=== PATIENT | male | born 1965 | race Asian ===

== ENCOUNTER 2019-04-10 15:12 | Outpatient (REF) | payer SELFPAY ==
[2019-04-10 18:42] LABS: Abs Immature Grans 0.01 k/cumm (0.0-0.09); Absolute Basophil Count 0.04 k/cumm (0.0-0.2); Absolute Eosinophil Count 0.04 k/cumm (0.0-0.7); Absolute Lymphocyte Count 1.56 k/cumm (1.2-3.4); Absolute Monocyte Count 0.92 k/cumm (0.11-0.7); Basophils % 0.4; Eosinophils % 0.4; HCT 44.4 % (40.0-50.0); HGB 15.7 g/dL (13.5-17.5); Immature Grans % 0.1; Lymphocytes % 14.3; Mean Corp. HGB Concentration 35.4 g/dL (32.0-36.0); Mean Corpuscular Hemoglobin 33.6 pg (27.0-33.0); Mean Corpuscular Volume 95.1 fL (80-95); Mean Platelet Volume 9.9 fL (8.0-11.0); Monocytes % 8.5; Neutrophils % 76.3; Platelet Count 324 x1000/uL (130-400); RBC 4.67 m/cumm (4.50-6.00); RBC Distribution Width 13.6 % (11.8-14.1); White Blood Cell Count 10.88 k/cumm (4.4-10.8)
[2019-04-10 18:54] LABS: ALT 49 U/L (12-78); AST 46 U/L (15-37); Albumin 4.1 g/dL (3.4-5.0); Alkaline Phosphatase 60 U/L (46-116); Anion Gap 11.8 mmol/L (3-11); BUN 7 mg/dL (7-18); Bilirubin, Total 0.7 mg/dL (0.2-1.0); CO2 26.2 mmol/L (21.0-32.0); CREATININE 0.71 mg/dL (0.70-1.30); Calcium 9.6 mg/dL (8.5-10.1); Calculated LDL 157 mg/dL; Chloride 103 mmol/L (98-107); Cholesterol 238 mg/dL (50-200); Glucose 111 mg/dL (70-100); HDL Cholesterol 63 mg/dL (40-60); Lipase 175 U/L (73-393); Potassium 4.8 mmol/L (3.5-5.1); Sodium 141 mmol/L (136-145); Total Protein 7.9 g/dL (6.4-8.2); Triglyceride 90 mg/dL (30-150)
[2019-04-10 19:05] LABS: Amylase 53 U/L (25-115)
[2019-04-10 19:52] LABS: Hemoglobin A1C 6.5 % (4.5-6.2)
== END 2019-04-10 15:32 ==
LOC: NCHCN 15:12
PROVIDERS: PCP Nurse Practitioner; Visit Provider Nurse Practitioner
DX: I10 Essential (primary) hypertension (principal); E11.9 Type 2 diabetes mellitus without complications; F10.11 Alcohol abuse, in remission
CPT/HCPCS: 80053; 80061; 83690; 83721; 82150; 83036; 85025

== ENCOUNTER 2019-04-10 15:29 | Outpatient (CLI) | payer SELFPAY ==
--- NOTE | 2019-04-10 15:54 | DI.RAD_ITS ---
SYMPTOM/DIAGNOSIS: ACUTE BACK PAIN WITH SCIATICA, M54.40 LUMBAR SPINE: AP, lateral and bilateral oblique views. No priors. There is normal alignment of the lumbar spine. No spondylolysis or spondylolisthesis is seen. No acute fractures or subluxations are present. The disc heights are well maintained. There are endplate osteophytes throughout the lumbar spine, particularly at L 2- 3 and L 3-4. Degenerative changes of the facets are seen at L 4-5 and L 5-S 1. The bones appear normally mineralized. IMPRESSION: Moderate degenerative changes in the lumbar spine. No acute fracture or subluxation.
== END 2019-04-10 15:49 ==
PROVIDERS: PCP Nurse Practitioner; Visit Provider Nurse Practitioner
DX: M54.40 Lumbago with sciatica, unspecified side (principal); M47.27 Other spondylosis with radiculopathy, lumbosacral region
CPT/HCPCS: 72110

== ENCOUNTER 2019-06-06 00:24 | Outpatient (CLI) | payer BC, SELFPAY ==
--- NOTE | 2019-06-06 08:42 | DI.MRI_ITS ---
SYMPTOM/DIAGNOSIS: ACUTE BACK PAIN W/SCIATICA M54.40 LUMBOSACRAL SPINE MRI: 06/06 MRI examination of the lumbosacral spine was performed according to the usual protocol. No significant bony signal abnormality seen. There are moderate hypertrophic degenerative changes seen involving the facet joints at Ll4-5 and mild hypertrophic degenerative changes of the facet joints are noted at L3-4 and L5-S1. The conus medullaris appears intact. No significant findings at L1-2 or L2-3. At L3-4 there is a disc bulge with resulting borderline central canal spinal stenosis. No neural foraminal narrowing. No additional findings. At L4-5 there is a large disc herniation which is broad based and has components to the right and left of midline with a probable extruded disc fragment inferior to the disc level, right paracentral. There is significant narrowing of the available spinal canal at the L4-5 level particularly to the left of midline and there is presumed narrow impingement on multiple nerve roots at this level. Neural foramina appear fairly well maintained. At L5-S1, there is a moderate sized central and left lateral disc herniation. Left S1 nerve root is displaced posteriorly and compressed. Neural foramina appear fairly well maintained at L5-S1 as well. CONCLUSION: 1. Mild/borderline central canal spinal stenosis at L3-4 2. Large multi component disc herniation including inferiorly projected right sided extruded disc fragment at L4-5 3. Moderate sized central and left lateral disc herniation at L5-S1 with impingement on at least left S-1 nerve root at this level as well.
== END 2019-06-06 00:44 ==
PROVIDERS: PCP Nurse Practitioner; Visit Provider Nurse Practitioner
DX: M54.40 Lumbago with sciatica, unspecified side (principal); M48.061 Spinal stenosis, lumbar region without neurogenic claudication; M51.17 Intervertebral disc disorders with radiculopathy, lumbosacral region; M51.16 Intervertebral disc disorders with radiculopathy, lumbar region
CPT/HCPCS: 72148

== ENCOUNTER 2020-06-07 13:40 | Outpatient (REF) | payer BC, SELFPAY ==
[2020-06-07 14:25] LABS: Bilirubin Negative (Negative); Blood Negative (Negative); Clarity Clear (Clear); Glucose Negative (Negative); Ketones Trace mg/dL (Negative); Leukocyte Esterase Negative (Negative); Nitrite Negative (Negative); Specific Gravity 1.015 (1.005-1.025); Urobilinogen 0.2 EU/dL (Up TO 0.2)
[2020-06-07 15:02] LABS: COMMENT (LAB VIEW ONLY) 77.95 mg/dL; Microalb ug/mg Crea 16.2 ug/mg Cr
== END 2020-06-07 14:00 ==
LOC: LBN 13:40
PROVIDERS: PCP Nurse Practitioner Family; Visit Provider Nurse Practitioner Family
DX: E11.9 Type 2 diabetes mellitus without complications (principal)
CPT/HCPCS: 81003; 82043; 82570

== ENCOUNTER 2020-06-13 04:15 | Outpatient (CLI) | payer BC, SELFPAY ==
[2020-06-13 13:32] LABS: Abs Immature Grans 0.01 10^3/uL (0.0-0.06); Absolute Basophil Count 0.07 10^3/uL (0.0-0.2); Absolute Eosinophil Count 0.04 10^3/uL (0.0-0.7); Absolute Lymphocyte Count 1.79 10^3/uL (1.2-3.4); Absolute Monocyte Count 0.61 10^3/uL (0.1-0.8); Absolute Neutrophil Count 3.36 10^3/uL (1.2-6.7); Basophils % 1.2; Eosinophils % 0.7; HCT 41.1 % (40.0-50.0); HGB 14.5 g/dL (13.5-17.5); Immature Grans % 0.2; Lymphocytes % 30.4; MCH 32.3 pg (27.0-33.0); MCHC 35.3 % (32.0-36.0); MCV 91.5 fL (80-95); MPV 8.8 fL (8.0-11.0); Monocytes % 10.4; Neutrophils % 57.1; Nucleated RBC 0 %; Platelet Count 319 10^3/uL (130-400); RBC 4.49 10^6/uL (4.36-5.78); RDW 14.5 % (11.8-14.1); WBC 5.88 10^3/uL (4.4-10.8)
[2020-06-13 13:54] LABS: Hemoglobin A1C 6.2 % (<5.7)
[2020-06-13 14:27] LABS: Calculated LDL 134 mg/dL (<100); Cholesterol 236 mg/dL (<200); HDL Cholesterol 85 mg/dL (40-60); TSH 0.42 uIU/mL (0.36-3.74); Triglyceride 87 mg/dL (<150)
[2020-06-13 14:54] LABS: FREE T4 0.94 ng/dL (0.76-1.46)
[2020-06-14 10:13] LABS: Lyme Ab w Rflx to Lyme Confirm Negative (Negative)
[2020-06-15 19:44] LABS: Anaplasma phagocytophilum Negative (Negative); B. miyamotoi PCR Negative (Negative); Babesia divergens/MO-1 Negative (Negative); Babesia duncani Negative (Negative); Babesia microti Negative (Negative); Ehrlichia chaffeensis Negative (Negative); Ehrlichia ewingii/canis Negative (Negative); Ehrlichia muris eauclairensis Negative (Negative)
[2020-06-17 12:39] LABS: Testosterone, Total 529 ng/dL (240-950)
== END 2020-06-13 04:35 ==
PROVIDERS: PCP Nurse Practitioner Family; Visit Provider Nurse Practitioner Family
DX: E11.9 Type 2 diabetes mellitus without complications (principal); G51.0 Bell's palsy; N52.9 Male erectile dysfunction, unspecified
CPT/HCPCS: 36415; 80061; 84403; 87798; 83036; 84439; 84443; 85025; 86618

== ENCOUNTER 2020-07-10 08:51 | Outpatient (CLI) | payer BC, SELFPAY ==
--- NOTE | 2020-07-10 | DI.MRI_ITS ---
EXAM: MR BRAIN WO/W CLINICAL HISTORY: PROGRESSIVE CN VII PALSY,FACIAL NERVE PALSY,G51.0 TECHNIQUE: Multiplanar multisequence MRI of the brain was performed. CONTRAST MATERIAL: IV Contrast: 17 ML of Dotarem contrast administered. COMPARISON: No exams were available for comparison FINDINGS: VENTRICLES AND EXTRA AXIAL SPACES: Normal in size and morphology for the patient's age. HEMORRHAGE: None. CEREBRAL PARENCHYMA: No focus of restricted diffusion to suggest acute infarct. No space-occupying le armani identified. MIDLINE SHIFT: None. BRAINSTEM/CEREBELLUM: Normal. CALVARIUM: Normal. ENHANCEMENT: No suspicious enhancement identified. VISUALIZED PARANASAL SINUSES/MASTOIDS: Mucous retention cysts or polyps are seen in the maxillary sin uses. Remaining visualized paranasal sinuses and mastoids are clear. [place]: Normal flow void. PITUITARY GLAND: Unremarkable. OTHER FINDINGS: No masses or enhancing lesions are seen in the internal auditory canals or cerebellop ontine angles. IMPRESSION: No intracranial mass or enhancing lesion. No evidence of an acute infarct or intracranial hemorrhage . DATA REPOSITORY:
[2020-07-10 15:42] LABS: ALT 69 U/L (16-63); AST 51 U/L (15-37); Alkaline Phosphatase 51 U/L (46-116); Anion Gap 9.3 mmol/L (3-11); BUN 7 mg/dL (7-18); Bilirubin, Total 0.5 mg/dL (0.2-1.0); CO2 29.7 mmol/L (21.0-32.0); CREATININE 0.86 mg/dL (0.70-1.30); Calcium 9.4 mg/dL (8.5-10.1); Chloride 102 mmol/L (98-107); Glucose 127 mg/dL (74-106); Potassium 3.5 mmol/L (3.5-5.1); Sodium 141 mmol/L (136-145); Total Protein 7.7 g/dL (6.4-8.2); Vitamin B12 331 pg/mL (193-986)
[2020-07-10] MEDS: Gadoterate meglumine 20 ML VIAL 17 ML IVP (15:59)
[2020-07-10] MEDS: Normal Saline Flush 10 ML SYR IVP (16:00)
[2020-07-10 21:12] LABS: PSA, Screening 0.5 ng/mL (0.0-3.5)
== END 2020-07-10 09:11 ==
PROVIDERS: PCP Nurse Practitioner Family; Visit Provider Nurse Practitioner Family
DX: G51.0 Bell's palsy (principal)
CPT/HCPCS: 70553; 80053; 84153; 82607

== ENCOUNTER 2022-03-11 12:52 | Outpatient (CLI) | payer BC, SELFPAY ==
[2022-03-11 11:59] LABS: Hemoglobin A1C 6.3 % (<5.7)
[2022-03-11 12:19] LABS: ALT 47 U/L (16-63); AST 51 U/L (15-37); Albumin 4.3 g/dL (3.4-5.0); Alkaline Phosphatase 64 U/L (46-116); Anion Gap 8.8 mmol/L (3-11); BUN 16 mg/dL (7-18); Bilirubin, Total 2.7 mg/dL (0.2-1.0); CO2 29.2 mmol/L (21.0-32.0); CREATININE 0.9 mg/dL (0.70-1.30); Calcium 9.6 mg/dL (8.5-10.1); Calculated LDL 86 mg/dL (<100); Chloride 96 mmol/L (98-107); Cholesterol 206 mg/dL (<200); Glucose 153 mg/dL (74-106); HDL Cholesterol 96 mg/dL (40-60); Potassium 4.3 mmol/L (3.5-5.1); Sodium 134 mmol/L (136-145); Total Protein 8.1 g/dL (6.4-8.2); Triglyceride 121 mg/dL (<150)
[2022-03-11 12:47] LABS: Microalb ug/mg Crea 18.3 ug/mg Cr
[2022-03-11 23:17] LABS: PSA, Screening 0.7 ng/mL (<=3.5)
[2022-03-12 09:12] LABS: Hepatitis B Surface Ag Negative (Negative)
[2022-03-12 09:32] LABS: HIV-1/2 Ag & Ab Screen Negative (Negative)
[2022-03-12 09:34] LABS: Hepatitis C Ab w Rflx HCV PCR Negative (Negative)
== END 2022-03-11 12:53 | disposition home or self-care (01) ==
LOC: LBO 12:54
PROVIDERS: PCP Nurse Practitioner Family; Visit Provider Family Medicine
DX: I10 Essential (primary) hypertension (principal); E11.40 Type 2 diabetes mellitus with diabetic neuropathy, unspecified; E78.5 Hyperlipidemia, unspecified; Z11.59 Encounter for screening for other viral diseases; Z11.4 Encounter for screening for human immunodeficiency virus [HIV]; Z12.5 Encounter for screening for malignant neoplasm of prostate
CPT/HCPCS: 36415; 80053; 80061; 84153; 86803; 87340; 87389; 82043; 82570; 83036

== ENCOUNTER 2022-07-21 02:28 | Outpatient (CLI) | payer BC, SELFPAY ==
[2022-07-21 16:44] LABS: ALT 30 U/L (16-63); AST 37 U/L (15-37); Albumin 3.8 g/dL (3.4-5.0); Alkaline Phosphatase 47 U/L (46-116); Anion Gap 11.1 mmol/L (3-11); BUN 12 mg/dL (7-18); Bilirubin, Total 0.4 mg/dL (0.2-1.0); CO2 24.9 mmol/L (21.0-32.0); CREATININE 0.9 mg/dL (0.70-1.30); Calcium 8.9 mg/dL (8.5-10.1); Chloride 99 mmol/L (98-107); Estimated GFR 99.62 (mL/min/1.73m2); Glucose 195 mg/dL (74-106); Potassium 3.4 mmol/L (3.5-5.1); Sodium 135 mmol/L (136-145); Total Protein 7.5 g/dL (6.4-8.2)
[2022-07-22 18:18] LABS: PSA, Screening 0.7 ng/mL (<=3.5)
== END 2022-07-21 02:29 | disposition home or self-care (01) ==
LOC: LBO 02:29
PROVIDERS: PCP Nurse Practitioner Family; Visit Provider Nurse Practitioner Family
DX: E11.40 Type 2 diabetes mellitus with diabetic neuropathy, unspecified (principal)
CPT/HCPCS: 36415; 80053; 84153; 83036

== ENCOUNTER 2023-12-04 16:21 | Emergency (ER) | payer BC, SELFPAY ==
[2023-12-04] VITALS (9 sets, daily range): BP systolic 120–132; BP diastolic 69–77; PULSE 60–81; RESP 12–17; TEMP 36.5; O2SAT 95–100
--- NOTE | 2023-12-04 16:15 | DI.CT_ITS ---
Exam(s) CT HEAD WO EXAM: CT HEAD WO CLINICAL HISTORY: stroke like symptoms, Right sided deficits. TECHNIQUE: Imaging Protocol: Axial computed tomography images with coronal and sagittal reformatted images were created and reviewed COMPARISON: MR MR BRAIN WO/W from 07/10/2020 FINDINGS: Ventricles and Extra axial spaces: Normal in size and morphology for the patient's age. Hemorrhage: None. Cerebral parenchyma: No acute territorial infarct. There is no mass effect. Midline shift: None. Brainstem/Cerebellum: Normal. Calvarium: Normal. Visualized Paranasal sinuses/Mastoids: Mucous retention cysts are seen in the maxillary sinuses bilat erally. There is mucosal thickening in the ethmoid air cells bilaterally. Soft Tissues: Unremarkable. IMPRESSION: No acute intracranial process. RADIATION DOSE DELIVERED: Total DLP DATA REPOSITORY: All CT scans at this facility are submitted to the National Radiology Data Registry (NRDR) Dose Index Registry (DIR) with the [employer] (ACR). RADIATION OPTIMIZATION: All CT scans at this facility use at least one of these dose optimization te chniques: automated exposure control; mA and/or kV adjustment per patient size (includes targeted exa ms where dose is matched to clinical indication); or iterative reconstruction.
--- NOTE | 2023-12-04 16:15 | RT.EKG_ITS ---
APPROVED REPORT Exam: Resting ECG Reason for Exam: stroke Patient Location: E HR:67 bpm ECG Measurements Heart Rate 67 AXIS SC 186 P 80 QRSd 151 QRS 74 QT 419 T 11 QTc 444 Conclusion Sinus rhythm...normal P axis, V-rate 60- 99 IVCD, consider LBBB...QRSd>120, notch/slur R I aVL V5-6 ST elevation secondary to IVCD...Multiple VCG criteria Physician: LBBB, no comparison, negative for sgarbossa
--- NOTE | 2023-12-04 16:54 | DI.VRAD_ITS ---
PROCEDURE INFORMATION: Exam: CT Head Without Contrast Exam date and time: 12/04/2023 4:22 PM Age: 58 years old Clinical indication: Stroke-like symptoms; Altered mental status/memory loss; Additional info: Right sided deficits TECHNIQUE: Imaging protocol: Computed tomography of the head without contrast. Other technique: STROKE PROTOCOL was implemented. COMPARISON: MR BRAIN WO/W 07/10/2020 3:05 PM FINDINGS: Brain: There is no acute intracranial hemorrhage, mass effect or midline shift. There is no large acute territorial cerebral infarct. Cerebral ventricles: No ventriculomegaly. Paranasal sinuses: Mucosal polyps versus mucus retention cysts are seen in the bilateral maxillary sinuses. Mastoid air cells: Visualized mastoid air cells are well aerated. Bones/joints: Unremarkable. No acute fracture. Soft tissues: Unremarkable. IMPRESSION: No acute intracranial hemorrhage, mass effect or midline shift. If there is further clinical concern for acute infarct, MRI may be considered. ASSESSMENT: ASPECTS ([place] Stroke Program Early CT Score) is 10. Dictated and Authenticated by: Mary Alice Young MD. Ordering:CHRISSY Pollack MD
[2023-12-04 16:57] LABS: Abs Immature Grans 0.02 10^3/uL (0.0-0.06); Absolute Basophil Count 0.03 10^3/uL (0.0-0.2); Absolute Eosinophil Count 0.09 10^3/uL (0.0-0.7); Absolute Lymphocyte Count 2.66 10^3/uL (1.2-3.4); Absolute Monocyte Count 0.65 10^3/uL (0.1-0.8); Absolute Neutrophil Count 2.87 10^3/uL (1.2-6.7); Basophils % 0.5; Eosinophils % 1.4; HCT 37.9 % (40.0-50.0); HGB 13.4 g/dL (13.5-17.5); Immature Grans % 0.3; Lymphocytes % 42.1; MCH 32.6 pg (27.0-33.0); MCHC 35.4 % (32.0-36.0); MCV 92 fL (80-95); MPV 8.4 fL (8.0-11.0); Monocytes % 10.3; Neutrophils % 45.4; Platelet Count 276 10^3/uL (130-400); RBC 4.11 10^6/uL (4.36-5.78); RDW 12.4 % (11.8-14.1); RDW-SD 42.4 fL; WBC 6.32 10^3/uL (4.4-10.8)
[2023-12-04] MEDS: Normal Saline 500 ML IV (17:06)
[2023-12-04 17:13] LABS: INR 1.1 (0.9-1.1); PTT Activated 26.7 sec (23.6-32.8); Prothrombin Time 10.6 sec (9.1-11.1)
[2023-12-04 17:22] LABS: ALT 23 U/L (16-63); AST 24 U/L (15-37); Albumin 3.7 g/dL (3.4-5.0); Alkaline Phosphatase 53 U/L (46-116); BUN 7 mg/dL (7-18); Bilirubin, Total 0.3 mg/dL (0.2-1.0); CREATININE 0.8 mg/dL (0.70-1.30); Calcium 8.6 mg/dL (8.5-10.1); Chloride 100 mmol/L (98-107); Estimated GFR 102.58 (mL/min/1.73m2); Glucose 109 mg/dL (74-106); Potassium 3.7 mmol/L (3.5-5.1); Sodium 138 mmol/L (136-145); TSH (W/Ref FT4) 0.71 uIU/mL (0.36-3.74); Total Protein 7.7 g/dL (6.4-8.2); Troponin I < 50 ng/L (< or =60)
[2023-12-04 17:24] LABS: ETHANOL BLOOD 416.4 mg/dL (<10)
[2023-12-04] MEDS: Normal Saline Flush 10 ML SYR IVP (17:24)
[2023-12-04] MEDS: Normal Saline - Diluent 50 ML VIAL IJ (17:25)
--- NOTE | 2023-12-04 17:42 | ED.GENADUL_ITS ---
Discharge Plan Disposition Patient Disposition: Home Condition: Good Discharge Details Clinical Impression: ETOH abuse, Left bundle branch block Primary Care Provider: Terri Cisneros ED Provider: Ranjeet Pedraza Home Meds and New Rx's Prescriptions: No Action sildenafil [Viagra] 50 mg tablet 50 mg PO DAILY PRN (Reason: sexual activity) Qty: 30 0RF Rx Instructions: administer 1 to 4 hours before activity naltrexone 50 mg tablet 50 mg PO DAILY Qty: 90 3RF multivitamin Tablet 1 tab PO DAILY Qty: 90 3RF rosuvastatin 5 mg tablet 5 mg PO DAILY Qty: 90 3RF lisinopril 10 mg tablet 10 mg PO DAILY Qty: 90 3RF metformin 1,000 mg tablet 1,000 mg PO DAILY Qty: 90 3RF magnesium oxide 500 mg tablet 500 mg PO DAILY PRN (Reason: muscle cramps) Qty: 90 0RF Discharge Instructions Instructions: Abuse of Alcohol (ED) Additional Instructions: At this time your workup has returned and is reassuring. You did have evidence of a left bundle branch block on your EKG which is slightly atypical. Please follow-up closely with your primary care provider for close follow-up with this. Please utilize your outpatient resources to continue to diminish your alcohol use. If you notice any worsening of your symptoms, or any new symptoms such as vomiting, diarrhea, fever, chills, shortness of breath, chest pain, numbness, weakness, or fainting , please return immediately to the emergency department for reevaluation. Please follow up with your primary care provider as soon as possible for reassessment and reevaluation. As always, it was a pleasure participating in your medical care today. Referrals: Terri Cisneros NP [Primary Care Provider] - Discharge Data Discharge Date/Time-TO BE ENTERED AT DEPARTURE: 12/04/23 20:28 HPI General Date/Time Provider Initiated Documentation: 12/04/23 16:30 . HPI Narrative: 58-year-old male with a past medical history of type 2 diabetes, alcohol use, hypertension, high cholesterol, who presents today for evaluation of altered mental status. History is somewhat unclear, however per EMS and family the patient had a last known well 1 hour prior to arrival. He went out for a walk earlier today, was relatively fine then. He fell earlier this morning, but had been doing fine. Questionable hitting his head. His walked out of the room for a brief time and per her and the patient became altered. EMS was called and the patient was brought to the ER for further assessment. Patient has no complaints. He smells of alcohol. later states that she found a water bottle that smells of vodka at home, and was concerned he may have been drinking this. No history of stroke. Patient does not want to discuss any other components of the history whatsoever, and is somewhat confrontational. Related Data Home Medications Medication Instructions Recorded Confirmed lisinopril 10 mg tablet 10 mg PO DAILY #90 tabs 04/09/23 06/07/23 metformin 1,000 mg tablet 1,000 mg PO DAILY #90 tabs 04/09/23 06/07/23 multivitamin 1 tab PO DAILY #90 tabs 04/09/23 06/07/23 naltrexone 50 mg tablet 50 mg PO DAILY #90 tabs 04/09/23 06/07/23 rosuvastatin 5 mg tablet 5 mg PO DAILY #90 tabs 04/09/23 06/07/23 sildenafil 50 mg tablet (Viagra) 50 mg PO DAILY PRN sexual activity 06/07/23 06/07/23 #30 tabs magnesium oxide 500 mg PO DAILY PRN muscle cramps 10/20/23 #90 tab-caps Previous Rx's Medication Instructions Recorded lisinopril 10 mg tablet 10 mg PO DAILY #90 tabs 04/09/23 metformin 1,000 mg tablet 1,000 mg PO DAILY #90 tabs 04/09/23 multivitamin 1 tab PO DAILY #90 tabs 04/09/23 naltrexone 50 mg tablet 50 mg PO DAILY #90 tabs 04/09/23 rosuvastatin 5 mg tablet 5 mg PO DAILY #90 tabs 04/09/23 sildenafil 50 mg tablet (Viagra) 50 mg PO DAILY PRN sexual activity 06/07/23 #30 tabs magnesium oxide 500 mg PO DAILY PRN muscle cramps 10/20/23 #90 tab-caps Allergies Allergy/AdvReac Type Severity Reaction Status Date / Time No Known Allergies Allergy Verified 04/09/23 13:26 General Stated Complaint: AMS/LOC JAYLIN: 2 Review of Systems All systems reviewed & are unremarkable except as noted in HPI and below Exam Narrative Exam Narrative: 1.Const: Well-nourished, Well-developed, appearing stated age 2.Eyes: PERRL, no conjunctival injection, and symmetrical lids. 3.ENT: Atraumatic external ears. Small abrasion over the nose. Moist MM. Neck: Symmetric, trachea midline, No thyromegaly. 4.CVS: +S1/S2, No murmurs or gallops. Peripheral pulses 2+ and equal in all extremities. Brisk capillary refill in all extremities. 5.RESP: Unlabored respiratory effort. Clear to auscultation bilaterally. No wheezes rales or rhonchi 6.GI: Soft, Nontender/Nondistended, No hepatosplenomegaly. No guarding or rebound. 7.MSK: Normocephalic/Atraumatic, Extremities w/o deformity or ttp No cyanosis or clubbing, Normal movement of all extremities 8.Skin: Warm, Dry. No rashes or lesions. 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 Sensation grossly intact, no focal neurologic deficits. CN 2-12 tested and intact, patient is able to hold bilateral arms up for 5 seconds and there is no pronator drift, patient also holds legs up for 10 seconds bilaterally without any drop, sensation intact to light touch in hands and feet bilaterally. Cerebellar exam normal as tested by [id number], [id number], rapid alternating movements, fine finger movements. Visual elkins intact peripherally. Normal speech pattern and verbal understanding. 10.Psych: (AAO) x3. Patient appears slightly intoxicated though. He does follow commands well Course Vital Signs Vital signs: Vital Signs Pulse Oximetry 100 12/04/23 16:37 Temperature 36.5 C 12/04/23 17:16 Temperature Source Temporal Artery Scan 12/04/23 16:50 Pulse 66 12/04/23 17:16 Pulse 72 12/04/23 17:16 Respiratory Rate 14 12/04/23 17:20 Respiratory Effort Normal 12/04/23 17:07 Respiratory Depth Normal 12/04/23 17:07 Respiratory Pattern Normal 12/04/23 17:07 Blood Pressure 121/71 12/04/23 17:16 Blood Pressure Mean 86 12/04/23 17:16 Blood Pressure Position Supine 12/04/23 16:50 Pulse Oximetry 98 12/04/23 17:20 Oxygen Delivery Method Room Air 12/04/23 16:50 Oxygen Flow Rate 0 12/04/23 16:50 Pain Level 0 12/04/23 16:50 Lab/Test Results Lab/Test Results: Laboratory Tests Range/Units 12/04/23 16:46 WBC (4.4-10.8) 10^3/uL 6.32 RBC (4.36-5.78) 10^6/uL 4.11 L Hgb (13.5-17.5) g/dL 13.4 L Hct (40.0-50.0) % 37.9 L MCV (80-95) fL 92 MCH (27.0-33.0) pg 32.6 MCHC (32.0-36.0) % 35.4 RDW (11.8-14.1) % 12.4 Plt Count (130-400) 10^3/uL 276 MPV (8.0-11.0) fL 8.4 Immature Gran % 0.3 Neutrophils % 45.4 Lymphocytes % 42.1 Monocytes % 10.3 Eosinophils % 1.4 Basophils % 0.5 Nucleated RBC % (0.0-0.3) % 0.0 Absolute Neutrophils (1.2-6.7) 10^3/uL 2.87 Absolute Lymphocytes (1.2-3.4) 10^3/uL 2.66 Absolute Monocytes (0.1-0.8) 10^3/uL 0.65 Absolute Eosinophils (0.0-0.7) 10^3/uL 0.09 Absolute Basophils (0.0-0.2) 10^3/uL 0.03 PT (9.1-11.1) sec 10.6 INR (0.9-1.1) 1.1 APTT (23.6-32.8) sec 26.7 Sodium (136-145) mmol/L 138 Potassium (3.5-5.1) mmol/L 3.7 Chloride (98-107) mmol/L 100 Carbon Dioxide (21.0-32.0) mmol/L 27.0 Anion Gap (3-11) mmol/L 11.0 BUN (7-18) mg/dL 7 Creatinine (0.70-1.30) mg/dL 0.8 Est GFR (CKD-EPI 2020) (mL/min/1.73m2) 102.58 Glucose (74-106) mg/dL 109 H Calcium (8.5-10.1) mg/dL 8.6 Total Bilirubin (0.2-1.0) mg/dL 0.3 AST (15-37) U/L 24 ALT (16-63) U/L 23 Alkaline Phosphatase (46-116) U/L 53 Troponin I (< or =60) ng/L < 50 Total Protein (6.4-8.2) g/dL 7.7 Albumin (3.4-5.0) g/dL 3.7 TSH (0.36-3.74) uIU/mL 0.71 Ethyl Alcohol (<10) mg/dL 416.4 H Medical Decision Making 58-year-old male with a past medical history of type 2 diabetes, alcohol use, hypertension, high cholesterol, who presents today for evaluation of altered mental status. History is somewhat unclear, however per EMS and family the patient had a last known well 1 hour prior to arrival. He went out for a walk earlier today, was relatively fine then. He fell earlier this morning, but had been doing fine. Questionable hitting his head. His walked out of the room for a brief time and per her and the patient became altered. EMS was called and the patient was brought to the ER for further assessment. Patient has no complaints. He smells of alcohol. later states that she found a water bottle that smells of vodka at home, and was concerned he may have been drinking this. No history of stroke. Patient does not want to discuss any other components of the history whatsoever, and is somewhat confrontational. Physical exam demonstrates an intoxicated appearing male, mild abrasion over his nose. No other signs of trauma. He holds all extremities off for greater than 10 seconds, he appears coordinated. He does appear intoxicated though and this has been making him somewhat confrontational with nursing staff and myself. Initially patient absolutely refused IV, and would not allow us to get up, we did a CT scan without contrast to evaluate for stroke or bleed. CT scan negative for acute process. Eventually IV was established, and we tried to bring the patient back for CTA, patient notably refused. Unable or unwilling to lie still for imaging. However at this time the patient's labs have returned and he has a notable alcohol level 416, in addition to that the rest of his symptoms appear inconsistent for evidence of stroke acutely. I suspect alcohol intoxication to be the main etiology especially with a negative noncontrast CT scan. Will continue to monitor closely. 7:31 PM On reassessment patient continues to show no focal deficits. Alcohol level is 400. I did contact his Sis, and we had a long discussion about his case. She states that he has been quite confrontational over the last 24 hours, his fall actually occurred yesterday not today. X-ray got the abrasion on his nose. He did have some slips and falls while walking on Wednesday past, but did not hit his head today. Patient's is concerned about his alcohol use, he has been in rehab multiple times before, but keeps relapsing. She has asked to speak with the recovery coaches. They we will contact her. Patient otherwise remained stable. Symptoms appear inconsistent with massive stroke at this time. No evidence of bleed or fracture or other significant trauma. Patient continues to asked to go home. We will keep him here until family arrives. 8 PM Patient's has arrived, she had a long discussion with me we discussed aspects of patient care. Patient is interactive, ambulates well without any signs of ataxia. does have resources for support at home with the patient's alcohol habits. Patient refused repeat troponin. Repeat EKG de monstrates stability of the left bundle branch block. No evidence of change, negative for Sgarbossa's criteria. Patient continues to deny any chest pain. No evidence of STEMI or ACS clinically. Recommend close follow-up with PCP for reevaluation of this and potential nonemergent outpatient stress testing. Discussed red flags which return. I have extensively reviewed the treatment plan and discharge instructions with the patient and their family. I have addressed all patient concerns at this time. The patient and family was made aware of what symptoms to monitor for that would warrant a return to the emergency department. Discussed the plan with the patient and family, they demonstrate verbal understanding and agreement with our assessment and plan at this time. The documentation in this chart was dictated using [employer] dictation software. Please excuse any dictation errors. FINDINGS: Brain: There is no acute intracranial hemorrhage, mass effect or midline shift. There is no large acute territorial cerebral infarct. Cerebral ventricles: No ventriculomegaly. Paranasal sinuses: Mucosal polyps versus mucus retention cysts are seen in the bilateral maxillary sinuses. Mastoid air cells: Visualized mastoid air cells are well aerated. Bones/joints: Unremarkable. No acute fracture. Soft tissues: Unremarkable. IMPRESSION: No acute intracranial hemorrhage, mass effect or midline shift. If there is further clinical concern for acute infarct, MRI may be considered. ASSESSMENT: ASPECTS ([place] Stroke Program Early CT Score) is 10. Thank you for allowing us to participate in the care of your patient. Dictated and Authenticated by: MaryA lice Allen MD 12/04/2023 4:53 PM Eastern Time ([place] & [place]) Quality:SDOH Health Related Social Needs: No Data to Display PFSH All Active Problems (Updated 12/04/23 @ 22:48 by Ranjeet Pedraza DO) Left bundle branch block (Acute) ETOH abuse (Chronic) Type 2 diabetes mellitus with diabetic neuropathy (Chronic) Alcohol use disorder, severe, dependence (Acute) Essential hypertension (Chronic) Hyperlipidemia (Chronic) Lumbar disc herniation with radiculopathy (Chronic) Followed by [facility] MRI 2019: Large disc herniation L4-L5, central and left lateral disc herniation at L5-S1 Erectile dysfunction (Acute) Medical History Alcohol withdrawal seizure Surgical History No significant past surgical history Family History Mother , at 40 from accident--burned in fire No problems noted. Father , 80 Lung cancer Sister No problems noted. Sister No problems noted. Brother No problems noted. Son No problems noted. Daughter No problems noted. Daughter No problems noted. Daughter No problems noted. Maternal Grandfather Heart disease Myocardial infarction Maternal Grandmother No problems noted. Paternal Grandfather No problems noted. Paternal Grandmother No problems noted. Social History Smoking/Tobacco Use Status: Current every day Tobacco: How many years used: 15 Quit status: not considering quitting Second Hand Exposure: No Smoking risk assessment performed?: Yes Alcohol Intake: former Drug use: Occasionally Substance use type: marijuana Details: BERYL on arrival. Household members: spouse Housing: apartment Communication Needs: None Do you need help understanding health information?: Rarely Pets and animals: Yes Pets and animals: cat(s) and dog(s) Sexually active: Yes Do you think of yourself as: straight/heterosexual What is your relationship status?: How often do you talk on the phone with friends or family?: three or more times per week How often do you attend taoism or latter day services?: 1-3 times per year Do you belong to any clubs or organized social groups?: no Panel score (0-1 are the most socially isolated patients): 2 Additional Social history: BERYL
--- NOTE | 2023-12-04 18:45 | RT.EKG_ITS ---
APPROVED REPORT Exam: Resting ECG Reason for Exam: chest pain Patient Location: E HR:57 bpm ECG Measurements Heart Rate 57 AXIS NV 173 P 85 QRSd 147 QRS 89 QT 458 T 17 QTc 446 Conclusion Sinus bradycardia...rate< 60 Probable left ventricular hypertrophy...(RaVL+SV3)xQRSd >280 Anterolateral infarct, age indeterminate...Q >35mS, flat/neg T, V3-V6,I,aVL I have reviewed and interpreted ECG and agree with software generated interpretation.
== END 2023-12-04 20:28 | disposition home or self-care (01) ==
PROVIDERS: Emergency Provider Student in an Organized Health Care Education/Training Program; PCP Nurse Practitioner Family
DX: R41.82 Altered mental status, unspecified (principal); F10.120 Alcohol abuse with intoxication, uncomplicated; I44.7 Left bundle-branch block, unspecified; E11.40 Type 2 diabetes mellitus with diabetic neuropathy, unspecified; E78.5 Hyperlipidemia, unspecified; Y90.8 Blood alcohol level of 240 mg/100 ml or more
CPT/HCPCS: 36415; 80053; 93005; 99284; 70450; 80320; 81003; 84443; 84484; 85025; 85610; 85730; 93010